=== PATIENT | male | born 1995 | race African-American/Black ===

== ENCOUNTER 2021-02-18 18:03 | Emergency (ER) | payer OTHER ==
[~2021-02-18] VITALS: Ht 172.7 cm; Wt 81.6 kg
[2021-02-18 18:11] VITALS: BP 141/74
[2021-02-18] MEDS ORDERED: HYDROcodone/APAP 5/325 MG 1 TAB TAB PO ONE (20:10)
--- NOTE | 2021-02-18 20:48 | NUR ---
PT TAKEN TO BED 7
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
[2021-02-18] MEDS ORDERED: ACET-8386 PO (22:09)
[2021-02-18] MEDS ORDERED: BACI1PAC6 TP (22:11)
[2021-02-18] MEDS ORDERED: BACITRACIN OINT 500 UNITS/GM PKT TP ONE (22:23)
[2021-02-18 22:27] VITALS: BP 141/74
--- NOTE | 2021-02-18 22:27 | NUR ---
Patient discharged with v/s stable. Written and verbal after care instructions given and explained. Patient alert, oriented and verbalized understanding of instructions. Ambulatory with steady gait. All questions addressed prior to discharge. ID band removed. Patient advised to follow up with PMD. Rx of bacitracin and norco given. Patient educated on indication of medication including possible reaction and side effects. Opportunity to ask questions provided and answered.
== END 2021-02-18 22:27 | disposition home or self-care (01) ==
LOC: MED 18:03
DX: S50.12XA Contusion of left forearm, initial encounter (principal); V49.9XXA Car occupant (driver) (passenger) injured in unspecified traffic accident, initial encounter; Y93.89 Activity, other specified; Y92.89 Other specified places as the place of occurrence of the external cause; Y99.8 Other external cause status
CPT/HCPCS: 73030; 73070; 73090; 90471; 90715; 99284